=== PATIENT | female | born 1985 | race Caucasian/White ===

== ENCOUNTER 2019-04-07 13:18 | Emergency (ER) | payer MEDICAID ==
[2019-04-07] MEDS: DEXAMETHASONE 10 MG/ML 1 ML INJ IM (17:00)
[2019-04-07] MEDS: KETOROLAC 30 MG INJ IM (17:04)
[2019-04-07] MEDS: BACLOFEN 10 MG TAB PO (19:05)
[2019-04-07] MEDS: HYDROCODONE/APAP (5/325) TAB PO (19:05)
[2019-04-07] MEDS: LORAZEPAM 2 MG INJ IM (19:06)
== END 2019-04-07 20:00 | disposition home or self-care (01) ==
LOC: FTE 13:18
DX: M62.838 Other muscle spasm (principal)
CPT/HCPCS: 81025; 96372; 99284-25